=== PATIENT | male | born 1960 | race Caucasian/White ===

== ENCOUNTER 2016-09-07 13:19 | Observation (INO) | payer MEDICAID, MEDICARE ==
[2016-09-07] MEDS ORDERED: ASPIRIN (CHEWABLE) 81 MG TAB PO ONE (13:30)
[2016-09-07] MEDS ORDERED: MORPHINE 4 MG/ML INJECTION IV ONE (13:30)
[2016-09-07] MEDS ORDERED: SODIUM CHLORIDE 0.9% 10 ML FLUSH FLUSH PRN (13:30)
[2016-09-07] MEDS ORDERED: NITROGLYCERINE 2 % OINTMENT PACK TOP ONE (13:31)
[2016-09-07 13:55] LABS: AUTOMATED BASOPHIL 0.4 % (0-2); AUTOMATED EOSINOPHIL 3.5 % (0-5); AUTOMATED LYMPH 14.1 % (17-44); AUTOMATED MONOCYTE 4.6 % (3-10); AUTOMATED NEUTROPHIL 77.4 % (45-76); MPV 8.6 fL (7.4-10.4)
[2016-09-07] MEDS ORDERED: NITROGLYCERINE 0.4 MG TAB SL SCH (14:00)
[2016-09-07 14:06] LABS: BLOOD UREA NITROGEN 19 MG/DL (9-20); CALC CORRECTED 9.4 MG/DL (8.4-10.2); CALCULATED OSMOLALITY 276 MOs/Kg (270-290); CHLORIDE 101 mEq/L (98-107); GLUCOSE 277 MG/DL (70-99); SODIUM LEVEL 137 mEq/L (137-146); TOTAL PROTEIN 6.8 G/DL (6.3-8.2)
[2016-09-07 14:08] LABS: PARTIAL THROMB. TIME 26.8 SEC (22-35); PT-INR 1.2
--- NOTE | 2016-09-07 14:12 | DIRPT ---
CLINICAL DATA: Chest pain for 1 day with shortness of breath EXAM: PORTABLE CHEST 1 VIEW COMPARISON: Report of prior chest radiograph March 31, 2012 available ; images from that study cannot be retrieved. FINDINGS: There is hazy infiltrate in the right base. The lungs elsewhere clear. Heart size and pulmonary vascularity are normal. No adenopathy. No bone lesions. No pneumothorax. IMPRESSION: Focal infiltrate right base. Lungs elsewhere clear. Followup PA and lateral chest radiographs recommended in 3-4 weeks following trial of antibiotic therapy to ensure resolution and exclude underlying malignancy. Electronically Signed By: Kiko Lopez III, M.D. On: 09/07/2016 14:09
--- NOTE | 2016-09-07 14:18 | EDPRACDOC ---
- General Information Chief Complaint: Chest Pain Stated Complaint: HYPERGLYCEMIA Time Seen by Provider: 09/07/16 13:23 Information Source: Patient, Family Mode of Arrival: Ambulance Home Medications: Home Medications Atorvastatin Calcium [Lipitor] 10 mg PO HS 10/30/15 Insulin Detemir [Levemir] 75 unit SQ BID 10/30/15 Lisinopril/Hydrochlorothiazide [Lisinopril-Hctz 10-12.5 mg Tab] 1 tab PO QAM Fenofibrate [Tricor] 145 mg PO QAM 09/07/16 Gabapentin [Neurontin] 600 mg PO TID 09/07/16 Hydrocodone Bit/Acetaminophen [[place] 7.5-325 Tablet] 1 each PO QID PRN 09/07/16 MetFORMIN (Immediate Release) [GLUCOPHAGE Immed Release] 1,000 mg PO BID Paroxetine HCl [Paxil] 20 mg PO QAM 09/07/16 Trazodone HCl [Desyrel] 50 mg PO QHS 09/07/16 Levofloxacin [Levaquin] 750 mg PO DAILY #5 tab 09/08/16 Allergies/Adverse Reactions: Allergies Allergy/AdvReac Type Severity Reaction Status Date / Time No Known Allergies Allergy Verified 09/07/16 15:33 - History of Present Illness Onset: yesterday HPI: PT PRESENTS TODAY WITH SUBSTERNAL CP THAT BEGAN YESTERDAY. PT STATES PAIN WORSE WITH EXERTION, ASSOCIATED SHOB AND DIAPHORESIS. SOMEWHAT RELIEVED BY REST , BUT NEVER COMPLETELY. PT CURRENTLY SPEAKING IN 2-3 WORD SENTENCES AND DIAPHORETIC. NEGATIVE STRESS/ECHO SEVERAL YEARS AGO. WAS SCHEDULED TO HAVE REPEAT STRESS IN 3 WEEKS. Chest Pain Location: Reports: Substernal Pain Radiation: Reports: None Symptoms Occur: Reports: With light exertion Cardiac Risk Factors: Reports: Family History, Hyperlipidemia, Hypertension, Diabetes Cardiac History of: Reports: Stress Test (NEGATIVE SEVERAL YEARS AGO) PE Risk Factors: Reports: None Medications within 24 Hours: Reports: None Prehospital Care: Reports: Monitor Pain Came On: Reports: Gradually Pain Status: Present Now Pain Description: Reports: Sharp Pain Severity: Moderate Pain Worsens With: Reports: Exertion Pain Improves With: Reports: Rest Associated Signs and Symptoms: Reports: SOB ED Past Medical History - History Reviewed Yes Nurses notes reviewed and agree except as marked - Patient Medical History Cardiac History: Reports: Hypertension, Hypercholesterolemia Psychological History: Denies: Depression Systemic History: Reports: Diabetes Additional Past Medical History: CHRONIC BACK PAIN - Social Medical History Smoking Status: Never smoker EDM Review of Systems - Review of Systems ROS Negative Except as Marked: Yes All systems reviewed and were negative except as marked Constitutional: No Symptoms Reported Respiratory: Shortness of Breath Cardiovascular: Chest Pain Gastrointestinal: No Symptoms Reported Neurological: No Symptoms Reported Musculoskeletal: No Symptoms Reported Integumentary: No Symptoms Reported - Physical Exam Constitutional: Alert (Awake), Distress (DIAPHORETIC) Oriented to: Time, Person, Place Last recorded Vital Signs: Last Vital Signs Temp 97.9 F 09/07/16 13:33 Pulse 84 09/07/16 13:33 Resp 18 09/07/16 13:33 BP 142/70 09/07/16 13:33 Pulse Ox 90 L 09/07/16 13:33 Oxygen Pulse Oxygen Saturation 90 O2 Device Oxygen Flow Rate Fraction of Inspired Oxygen ( FIO2) - HEENT Head: Normal Eye Exam: Normal Neck: Normal, Denies Pain, Midline - Respiratory/Cardiovascular Respiratory: Normal - CTA Cardiovascular: Normal - GI Palpation: Normal Tenderness: Non tender - Musculoskeletal Back: Normal Extremities: Normal - Integumentary Skin: Warm, [place] Lymphatics: Normal - Neurologic Cerebellar: Normal Mood Description: Normal Thought: Coherent Perception: Normal ED Chest Pain Exam - Respiratory/Cardiovascular Respiratory: Normal - CTA Cardiovascular/Chest: Normal Radial Pulse: Normal Chest Palpation: Normal - Action ASA given in the ED: Yes - Results 09/07/16 13:41 09/08/16 04:35 WBC 9.5 xk/uL (3.8-10.8) 09/07/16 13:41 RBC 3.88 xM/uL (4.70-6.10) L 09/07/16 13:41 Hgb 11.5 g/dL (14.0-18.0) L 09/07/16 13:41 Hct 34.5 % (42-52) L 09/07/16 13:41 MCV 89 fL (80-94) 09/07/16 13:41 MCH 29.7 pg (27-32) 09/07/16 13:41 MCHC 33.4 g/dl (33-36) 09/07/16 13:41 RDW 14.3 % (11.5-14.5) 09/07/16 13:41 Plt Count 181 xk/uL (130-400) 09/07/16 13:41 MPV 8.6 fL (7.4-10.4) 09/07/16 13:41 Neut % (Auto) 77.4 % (45-76) H 09/07/16 13:41 Lymph % (Auto) 14.1 % (17-44) L 09/07/16 13:41 [place] % (Auto) 4.6 % (3-10) 09/07/16 13:41 Eos % (Auto) 3.5 % (0-5) 09/07/16 13:41 Baso % (Auto) 0.4 % (0-2) 09/07/16 13:41 Absolute Neuts (auto) 7.32 xk/uL (1.7-8.2) 09/07/16 13:41 Absolute Lymphs (auto) 1.33 xk/uL (0.65-4.75) 09/07/16 13:41 PT 11.9 SEC (9.2-11.2) H 09/07/16 13:41 INR 1.2 09/07/16 13:41 APTT 26.8 SEC (22-35) 09/07/16 13:41 Sodium 137 mEq/L (137-146) 09/07/16 13:41 Potassium 4.5 mEq/L (3.5-5.1) 09/07/16 13:41 Chloride 101 mEq/L (98-107) 09/07/16 13:41 Carbon Dioxide 26 mMOL/L (22-33) 09/07/16 13:41 Anion Gap 15 mEq/L (8-16) 09/07/16 13:41 BUN 19 MG/DL (9-20) 09/07/16 13:41 Creatinine 1.10 MG/DL (0.66-1.25) 09/07/16 13:41 Estimated GFR (MDRD) > 60 mL/min (>=60) 09/07/16 13:41 Glucose 277 MG/DL (70-99) H 09/07/16 13:41 POC Capillary Glucose 274 MG/DL (70-99) H 09/07/16 13:29 Calculated Osmolality 276 MOs/Kg (270-290) 09/07/16 13:41 Calcium 9.0 MG/DL (8.4-10.2) 09/07/16 13:41 Corrected Calcium 9.4 MG/DL (8.4-10.2) 09/07/16 13:41 Total Bilirubin 0.6 MG/DL (0.2-1.3) 09/07/16 13:41 AST 22 IU/L (17-59) 09/07/16 13:41 ALT 30 IU/L (21-72) 09/07/16 13:41 Alkaline Phosphatase 44 IU/L (38-126) 09/07/16 13:41 Total Protein 6.8 G/DL (6.3-8.2) 09/07/16 13:41 Albumin 3.6 G/DL (3.5-5.0) 09/07/16 13:41 Lab Results 09/07/16 09/07/16 09/07/16 13:41 13:41 13:41 WBC 9.5 RBC 3.88 L Hgb 11.5 L Hct 34.5 L MCV 89 MCH 29.7 MCHC 33.4 RDW 14.3 Plt Count 181 MPV 8.6 Neut % (Auto) 77.4 H Lymph % (Auto) 14.1 L [place] % (Auto) 4.6 Eos % (Auto) 3.5 Baso % (Auto) 0.4 Absolute Neuts (auto) 7.32 Absolute Lymphs (auto) 1.33 PT 11.9 H INR 1.2 APTT 26.8 Sodium 137 Potassium 4.5 Chloride 101 Carbon Dioxide 26 Anion Gap 15 BUN 19 Creatinine 1.10 Estimated GFR (MDRD) > 60 Glucose 277 H POC Capillary Glucose Calculated Osmolality 276 Calcium 9.0 Corrected Calcium 9.4 Total Bilirubin 0.6 AST 22 ALT 30 Alkaline Phosphatase 44 Total Protein 6.8 Albumin 3.6 09/07/16 13:29 WBC RBC Hgb Hct MCV MCH MCHC RDW Plt Count MPV Neut % (Auto) Lymph % (Auto) [place] % (Auto) Eos % (Auto) Baso % (Auto) Absolute Neuts (auto) Absolute Lymphs (auto) PT INR APTT Sodium Potassium Chloride Carbon Dioxide Anion Gap BUN Creatinine Estimated GFR (MDRD) Glucose POC Capillary Glucose 274 H Calculated Osmolality Calcium Corrected Calcium Total Bilirubin AST ALT Alkaline Phosphatase Total Protein Albumin Laboratory Results - last 24 hr 09/07/16 09/07/16 09/07/16 13:29 13:41 13:41 WBC 9.5 RBC 3.88 L Hgb 11.5 L Hct 34.5 L MCV 89 MCH 29.7 MCHC 33.4 RDW 14.3 Plt Count 181 MPV 8.6 Neut % (Auto) 77.4 H Lymph % (Auto) 14.1 L [place] % (Auto) 4.6 Eos % (Auto) 3.5 Baso % (Auto) 0.4 Absolute Neuts (auto) 7.32 Absolute Lymphs (auto) 1.33 PT INR APTT Sodium 137 Potassium 4.5 Chloride 101 Carbon Dioxide 26 Anion Gap 15 BUN 19 Creatinine 1.10 Estimated GFR (MDRD) > 60 Glucose 277 H POC Capillary Glucose 274 H Calculated Osmolality 276 Calcium 9.0 Corrected Calcium 9.4 Total Bilirubin 0.6 AST 22 ALT 30 Alkaline Phosphatase 44 Total Protein 6.8 Albumin 3.6 09/07/16 13:41 WBC RBC Hgb Hct MCV MCH MCHC RDW Plt Count MPV Neut % (Auto) Lymph % (Auto) [place] % (Auto) Eos % (Auto) Baso % (Auto) Absolute Neuts (auto) Absolute Lymphs (auto) PT 11.9 H INR 1.2 APTT 26.8 Sodium Potassium Chloride Carbon Dioxide Anion Gap BUN Creatinine Estimated GFR (MDRD) Glucose POC Capillary Glucose Calculated Osmolality Calcium Corrected Calcium Total Bilirubin AST ALT Alkaline Phosphatase Total Protein Albumin Laboratory Results 09/07/16 13:41 09/07/16 13:41 - EKG EKG #1 EKG Time: 13:31 -: Yes EKG interpreted by me Rate: bpm: 85 [place]: Normal Rhythm: NSR Block: None Hypertrophy: None ST: Normal Comments: UNUSUAL P AXIS; INVERTED P WAVES IN II AND III - Departure Disposition: Admit IP To This Hospital Condition: Stable Final Diagnosis: Acute coronary syndrome Pneumonia Qualifiers: Pneumonia type: due to unspecified organism Laterality: right Lung location: lower lobe of lung Qualified Code(s): J18.1 - Lobar pneumonia, unspecified organism Decision to Admit Time: 17:00 Decision to admit date: 09/14/16 Decision to admit: from ED
[2016-09-07] MEDS ORDERED: AZITHROMYCIN 250 MG TAB PO ONE (14:28)
[2016-09-07] MEDS ORDERED: CEFTRIAXONE 1 GM in D5W 100 ML IV ONE (14:28)
[2016-09-07 15:06] LABS: ALLEN'S TEST PASS; BEb 1.7 (+/- 2); TCO2 28.6 MMOL/L (23-27)
[2016-09-07 15:08] LABS: ABG Draw Site Right Radial
[2016-09-07] MEDS ORDERED: NITROGLYCERINE 0.4 MG TAB SL PRN (15:19)
--- NOTE | 2016-09-07 15:19 | HISTPHYS ---
- Chief Complaint Chest pain - History of Present Illness Patient is an obese 56-year-old white male who has noted the onset of midsternal chest heaviness over the past 24 hours lasting 5 date minutes at a time first occurring yesterday after feeding his fowl. He indicates that it is a pressure sensation with associated shortness breath but denies any diaphoresis. He mentions some tachycardic sensation that evening which lasted a few minutes. He had recurrent chest discomfort today lasting same wound time but more intense. He indicates that he had a stress test 3 years ago [place] which was reportedly negative. He has a history of diabetes mellitus hypertension hyper cholesterolemia. Past surgical history significant for cartilage repair both knees, two toes removed from each foot and bilateral lens implants. - Medical History Cardiac History: Reports: Hypertension, Hypercholesterolemia Systemic History: Reports: Diabetes Neurological History: Reports: No Significant History Psychological History: Reports: No Significant History. Denies: Depression - Surgical History Reports: Other (Bilateral knee cartilage surgery bilateral lens implant 4 toes removed) - Medictions/Allergies Allergies No Known Allergies Allergy (Verified 01/25/16 23:39) Current Medication List: Reviewed Home Medications Atorvastatin Calcium [Lipitor] 10 mg PO DAILY 10/30/15 Gabapentin 300 mg PO HS 10/30/15 Insulin Detemir [Levemir] 60 unit SQ BID 10/30/15 Lisinopril/Hydrochlorothiazide [Lisinopril-Hctz 10-12.5 mg Tab] 1 tab PO DAILY 10/30/15 Meloxicam [Mobic] 15 mg PO DAILY 10/30/15 Metformin HCl [Metformin HCl ER] 1,000 mg PO BID 10/30/15 Levofloxacin [Levaquin] 750 mg PO DAILY #14 tablet 01/26/16 Hydrocodone Bit/Acetaminophen [Hydrocodon-Acetaminophen 5-325] 1 - 2 tab PO Q6H PRN #10 tab 05/17/16 - Family History Reports: Hypertension, Diabetes - Social History Travel Outside of [place] in the Last 3 Months?: No Lives: with Spouse Smoking Status: Never smoker - Review of Systems Constitutional: No Symptoms Reported (No Fever, chills, wt loss/gain, diaphoresis,fatigue/malaise.) Eyes: No Symptoms Reported (No blurry vision, visual changes, eye pain, or eye redness.) Ears: No Symptoms Reported (No ear pain or discharge) Nose: No Symptoms Reported (No nasal discharge/congestion or bleeding) Mouth: No Symptoms Reported (No oropharyngeal lesions or erythema) Throat/Neck: No Symptoms Reported (No throat pain or swelling.No oropharyngeal lesions or erythema.) Respiratory: Shortness of Breath Cardiovascular: Chest Pain, Edema, Palpitations Gastrointestinal: No Symptoms Reported (No abdominal pain, nausea, vomiting, diarrhea, constipation, or bloody stool.) Genitourinary: No Symptoms Reported (No dysuria or hematuria.) Neurological: No Symptoms Reported (No headache, dizziness, seizures, or focal weakness.) Musculoskeletal:: Chronic low back pain, Osteoarthritis (Slipped disc) Integumentary: No Symptoms Reported (no rashes or lesions) Allergic/Immunologic: No Symptoms Reported (no rashes or lesions) Hematologic: No Symptoms Reported (No chronic anemia, bleeding, or easy bruising.), Other (Lymphatics- no lymph node swelling or pain.) Endocrine: Diabetes Psychiatric: No Symptoms Reported (Fully oriented, with normal and appropriate affect.) - Physical Exam Vital Signs: Initial Vitals Temperature 97.9 F 09/07/16 13:33 Pulse Rate 84 09/07/16 13:33 Respiratory Rate 18 09/07/16 13:33 Blood Pressure 142/70 09/07/16 13:33 Pulse Oxygen Saturation 90 L 09/07/16 13:33 Constitutional: Alert (Awake, Fully oriented. Normal and appropriate affect.Well appearing. Well nourished.), No apparent distress Oriented to: Time, Person, Place - HEENT Head: Normal (normocephalic, atraumatic.), Other (No cervical lymphadenopathy. No supraclavicular lymphadenopathy. Neck: No palpable mass, supple , trachea midline.) Eye: Normal (pupils equal, reactive to light, and round; EOMI, Sclera white) Oropharynx: Normal (Pharynx: Moist without exudate,Gums-no swelling, No oropharyngeal lesions or erythema, Mucous membranes are dry.) ENT EAC: Normal (No oropharyngeal lesions or erythema. Mucous membranes are dry. ) TMJ: Normal Nose: No Symptoms Reported (septum midline, Nares patent, without discharge or bleeding.) Respiratory: Normal - CTA (Clear to auscultation bilaterally. No wheezing, rales , rhonchi. Chest wall movements are symmetric. No use of accessory muscles to breathe.) Cardiovascular: Normal (RRR , Normal S1, S2. No murmurs, rubs, or gallops. PMI non-displaced. Carotids: no carotid bruits. No bradycardia or tachycardia. DP pulses 2+ bilaterally.) - GI Auscultation: Normal (normal active sounds) Palpation: Normal (Soft,non distended,nontender. No hepatosplenomegaly.), Other (Obesity BMI 37.7) Tenderness: Non tender (No rebound or guarding) Shanks's Sign: Negative - Musculoskeletal Back: Normal (Non-Tender) Extremities: Normal (Normal tone, DP pulses 2+ bilaterally, No cyanosis or edema bilaterally, FROM bilaterally.) Spine: non-tender, normal alignment, normal inspection - Integumentary Skin: Normal (Clean, dry, and intact. No rashes. No lesions.) Lymphatics: Normal (No cervical lymphadenopathy. No supraclavicular lymphadenopathy.) - Neurologic Memory Impaired: Normal Motor Function: Normal (Motor 5/5 throughout.Normal tone, Pulses 2+ No cyanosis or edema, FROM) Cranial Nerve: Normal (CN II-XII intact sensation, strength 5/5) Cerebellar: Normal (Babinski: toes downgoing bilaterally. Intact Finger to nose. Sensory grossly intact to light touch. Intact rapid alternating movements bilaterally. No pronator drift.) Mood Description: Normal (Fully oriented. Normal and appropriate affect.) Thought: Coherent Perception: Normal (Normal and appropriate affect.) - Focused CV Perfusion Exam Vital Signs: Last Vital Signs Temp 97.9 F 09/07/16 13:33 Pulse 82 09/07/16 15:17 Resp 18 09/07/16 15:17 BP 111/66 09/07/16 15:17 Pulse Ox 96 09/07/16 15:17 - Lab Results 09/07/16 13:41 09/07/16 13:41 Laboratory Results - last 24 hr 09/07/16 09/07/16 09/07/16 13:29 13:41 13:41 WBC 9.5 RBC 3.88 L Hgb 11.5 L Hct 34.5 L MCV 89 MCH 29.7 MCHC 33.4 RDW 14.3 Plt Count 181 MPV 8.6 Neut % (Auto) 77.4 H Lymph % (Auto) 14.1 L [place] % (Auto) 4.6 Eos % (Auto) 3.5 Baso % (Auto) 0.4 Absolute Neuts (auto) 7.32 Absolute Lymphs (auto) 1.33 PT INR APTT D-Dimer Quant (PE/DVT) Puncture Site pH pCO2 pO2 HCO3 Total CO2 Base Excess FiO2 % Specimen Drawn By Sodium 137 Potassium 4.5 Chloride 101 Carbon Dioxide 26 Anion Gap 15 BUN 19 Creatinine 1.10 Estimated GFR (MDRD) > 60 Glucose 277 H POC Capillary Glucose 274 H Calculated Osmolality 276 Lactic Acid Calcium 9.0 Corrected Calcium 9.4 Total Bilirubin 0.6 AST 22 ALT 30 Alkaline Phosphatase 44 Troponin I < 0.01 [id number]-Kjuyaunyvdz Pept 1140 H Total Protein 6.8 Albumin 3.6 09/07/16 09/07/16 09/07/16 13:41 14:00 15:00 WBC RBC Hgb Hct MCV MCH MCHC RDW Plt Count MPV Neut % (Auto) Lymph % (Auto) [place] % (Auto) Eos % (Auto) Baso % (Auto) Absolute Neuts (auto) Absolute Lymphs (auto) PT 11.9 H INR 1.2 APTT 26.8 D-Dimer Quant (PE/DVT) 949 H Puncture Site Right radial pH 7.390 pCO2 45.0 pO2 52.0 L HCO3 27.2 H Total CO2 28.6 H Base Excess 1.7 FiO2 % 0.21 Specimen Drawn By Belja Sodium Potassium Chloride Carbon Dioxide Anion Gap BUN Creatinine Estimated GFR (MDRD) Glucose POC Capillary Glucose Calculated Osmolality Lactic Acid Calcium Corrected Calcium Total Bilirubin AST ALT Alkaline Phosphatase Troponin I Eds-J-Vkghoatpwot Pept Total Protein Albumin 09/07/16 09/07/16 15:12 16:25 WBC RBC Hgb Hct MCV MCH MCHC RDW Plt Count MPV Neut % (Auto) Lymph % (Auto) [place] % (Auto) Eos % (Auto) Baso % (Auto) Absolute Neuts (auto) Absolute Lymphs (auto) PT INR APTT D-Dimer Quant (PE/DVT) Puncture Site pH pCO2 pO2 HCO3 Total CO2 Base Excess FiO2 % Specimen Drawn By Sodium Potassium Chloride Carbon Dioxide Anion Gap BUN Creatinine Estimated GFR (MDRD) Glucose POC Capillary Glucose Calculated Osmolality Lactic Acid 1.7 Calcium Corrected Calcium Total Bilirubin AST ALT Alkaline Phosphatase Troponin I < 0.01 Vjd-Y-Bcxyerhcipx Pept Total Protein Albumin - Diagnostic Findings EKG shows sinus rhythm rate 85 short p.r. of 125 millisecond questionable delta wave, septal q's and small q's inferiorly. No ST T wave changes. - Assessment (1) Chest pain R07.9 - CHEST PAIN, UNSPECIFIED Acute Present on Admission: Yes Qualifiers: Chest pain type: precordial chest pain Qualified Code(s): R07.2 - Precordial pain Lexiscan stress test in a.m.. Monitor overnight. 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 (3) Hyperlipidemia E78.5 - HYPERLIPIDEMIA, UNSPECIFIED Chronic Present on Admission: Yes Qualifiers: Hyperlipidemia type: other hyperlipidemia Qualified Code(s): E78.4 - Other hyperlipidemia Continue Lipitor as ordered. (4) Chronic back pain M54.9 - DORSALGIA, UNSPECIFIED; G89.29 - OTHER CHRONIC PAIN Chronic Present on Admission: Yes Qualifiers: Back pain location: low back pain Back pain laterality: unspecified Sciatica presence: without sciatica Qualified Code(s): M54.5 - Low back pain; G89.29 - Other chronic pain Analgesics ordered. (5) Right pulmonary infiltrate on CXR R91.8 - OTHER NONSPECIFIC ABNORMAL FINDING OF LUNG FIELD Acute Present on Admission: Yes Could be atelectasis versus infection will check PA and lateral chest x-ray in a.m.. (6) Obesity (BMI 35.0-39.9 without comorbidity) E66.9 - OBESITY, UNSPECIFIED Chronic Present on Admission: Yes Weight reduction necessary Case Care Discussed with: Patient, Nursing Staff Total Time: 58 minutes Critical Care: No Code: [id number]
[2016-09-07] MEDS ORDERED: Pharmacy Order Set Alert SCH (16:00)
[2016-09-07] MEDS ORDERED: ENOXAPARIN 80 MG/0.8 ML PFS SQ SCH (18:00)
[2016-09-07] MEDS ORDERED: DEXTROSE 25 GM/50 ML PFS IV PRN (18:27)
[2016-09-07] MEDS ORDERED: GLUCOSE (ORAL GEL) 15 GM TUBE PO PRN (18:27)
[2016-09-07] MEDS ORDERED: GLUCAGON 1 MG VIAL SQ PRN (18:27)
[2016-09-07] MEDS ORDERED: TUSSIONEX 5 ML ORAL SYRINGE PO PRN (18:28)
[2016-09-07] MEDS ORDERED: ACETAMINOPHEN 325 MG/TAB TABLET PO PRN (18:28)
[2016-09-07] MEDS ORDERED: BENZONATATE 100 MG PERLES PO PRN (18:28)
[2016-09-07] MEDS ORDERED: BISACODYL 10 MG SUPP PR PRN (18:28)
[2016-09-07] MEDS ORDERED: ONDANSETRON HCL 4 MG/2 ML VIAL IV PRN (18:28)
[2016-09-07] MEDS ORDERED: PROMETHAZINE 25 MG/ML VIAL IV PRN (18:28)
[2016-09-07] MEDS ORDERED: SENNA CONCENTRATE TAB PO PRN (18:28)
[2016-09-07] MEDS ORDERED: ACETAMINOPHEN 325 MG SUPP PR PRN (18:28)
[2016-09-07] MEDS: MORPHINE 2 MG/ML INJECTION IV PRN ×2 (19:52→22:57)
[2016-09-07] MEDS ORDERED: Levofloxacin 750 mg/150 ml D5W 750 MG/150 ML RTU IV SCH (20:00)
[2016-09-07 20:04] LABS: ALL NEG? NO
[2016-09-07 20:16] LABS: MDMA* NEG (NEGATIVE); METHAMPHETAMINES NEG (NEGATIVE); OXYCODONE NEG (NEGATIVE)
[2016-09-07] MEDS ORDERED: Vaccine Screening Complete SCH (22:00)
[2016-09-07] MEDS: NAPROXEN 500 MG EC TAB PO SCH (22:57)
[2016-09-08] MEDS: NITROGLYCERINE 2 % OINTMENT PACK TOP SCH ×2 (00:54→11:26)
[2016-09-08 02:38] VITALS: BMI 39.6
[2016-09-08] MEDS: MORPHINE 2 MG/ML INJECTION IV PRN (04:30)
[2016-09-08] MEDS: PANTOPRAZOLE 40 MG TAB PO SCH ×2 (04:32→11:29)
[2016-09-08 05:35] LABS: LDL (calc.) 48.2 MG/DL (<100); VLDL (calc.) 28.8 MG/DL (5-40)
[2016-09-08] MEDS ORDERED: REGULAR INSULIN 100 UNITS/ML - 3 ML VIAL SQ SCH (07:00)
[2016-09-08] MEDS ORDERED: HYDROCODONE BIT PO PRN (09:17)
[2016-09-08] MEDS ORDERED: [UNRECOGNIZED DRUG - OTHER] PO PRN (09:17)
[2016-09-08] MEDS ORDERED: ACETAMINOPHEN PO PRN (09:17)
--- NOTE | 2016-09-08 09:37 | CAPUEKG ---
[place], [place] Test Date: 2016-09-07 Pat Name: NEGRO BURGESS Department: Room: 439 Gender: Male Shipping Assistant: LEILA FISHERB: Requested By: Order Number: Reading MD: Samuel Negrete Measurements Intervals [place] Rate: 79 P: -18 OR: 158 QRS: 40 QRSD: 96 T: 59 QT: 398 QTc: 456 Interpretive Statements Unusual P axis, probably Normal sinus rhythm No acute changes. Electronically Signed On 09-08-16 09:36:26 EST by Samuel Negrete <[email or web address] [id number]
[2016-09-08] MEDS ORDERED: HYDROCODONE 5 MG/ACETAMIN 325 MG TAB PO PRN (09:44)
[2016-09-08] MEDS ORDERED: INSULIN DETEMIR 100 UNITS/ML PEN SQ SCH ×2 (10:00→21:00)
[2016-09-08] MEDS ORDERED: Pharmacy Review for Metformin - IV Contrast Given SCH (10:00)
--- NOTE | 2016-09-08 10:20 | DIRPT ---
CLINICAL DATA: Elevated D-dimer. Chest pain 2 days. EXAM: CT ANGIOGRAPHY CHEST WITH CONTRAST TECHNIQUE: Multidetector CT imaging of the chest was performed using the standard protocol during bolus administration of intravenous contrast. Multiplanar CT image reconstructions and MIPs were obtained to evaluate the vascular anatomy. CONTRAST: 80 mL Isovue 370 IV COMPARISON: Chest x-ray 09/07/2016 FINDINGS: Negative for pulmonary embolism. Pulmonary arteries normal in caliber. Negative for aortic aneurysm or dissection. Mild coronary calcification. Heart size within normal limits. No pericardial effusion. Diffuse bilateral airspace disease involving upper and lower lobes is relatively symmetric but slightly greater on the right than the left. No significant pleural effusion. Negative for lung mass. Mild adenopathy. Mild mediastinal and bilateral hilar adenopathy. Upper abdomen reveals no acute abnormality. Hepatomegaly noted. No thoracic fracture. No acute skeletal lesion. Review of the MIP images confirms the above findings. IMPRESSION: Negative for pulmonary embolism. Diffuse bilateral airspace disease, likely related to pulmonary edema however pneumonia not excluded. Mild bilateral hilar and mediastinal adenopathy. Differential includes reactive adenopathy, infection, sarcoid. Neoplasm considered less likely. No focal lung mass. Electronically Signed By: John Nelson M.D. On: 09/08/2016 10:17
--- NOTE | 2016-09-08 10:26 | CAPUEKG ---
[place], [place] Test Date: 2016-09-07 Pat Name: NEGRO BURGESS Department: Room: 439 Gender: Male Exchange Clerk: : Requested By: Order Number: Reading MD: Samuel Negrete Measurements Intervals [place] Rate: 77 P: [place]: 144 QRS: 25 QRSD: 96 T: 58 QT: 414 QTc: 468 Interpretive Statements Normal sinus rhythm Normal ECG Electronically Signed On 09-08-16 10:25:03 EST by Samuel Negrete <[email or web address] [id number]
[2016-09-08] MEDS: NAPROXEN 500 MG EC TAB PO SCH (11:26)
[2016-09-08 11:41] VITALS: BP 141/92; TEMP 97.6
[2016-09-08] MEDS ORDERED: Levofloxacin 750 mg/150 ml D5W 750 MG/150 ML RTU IV SCH (12:00)
[2016-09-08] MEDS ORDERED: PERFLUTREN LIPID MICROSPHERE 1.5 ML VIAL IV ONE (13:00)
[2016-09-08] MEDS ORDERED: Non-Formulary Medication ITEM (Gabapentin [Neurontin] 600 MG) PO SCH (14:00)
[2016-09-08] MEDS ORDERED: GABAPENTIN 300 MG CAP PO SCH (14:00)
--- NOTE | 2016-09-08 14:35 | PCM.DCS92 ---
- Final/Secondary Discharge Diagnosis (1) Chest pain Acute R07.9 - CHEST PAIN, UNSPECIFIED Present on Admission: Yes precordial chest pain Comment: Started on IV antibiotics. Monitor overnight. (2) Insulin dependent diabetes mellitus Chronic E11.9 - TYPE 2 DIABETES MELLITUS WITHOUT COMPLICATIONS; Z79.4 - [employer] (CURRENT) USE OF INSULIN Present on Admission: Yes Comment: Hemoglobin A1c urine microalbumin diabetic diet. (3) Hyperlipidemia Chronic E78.5 - HYPERLIPIDEMIA, UNSPECIFIED Present on Admission: Yes other hyperlipidemia E78.4 - Other hyperlipidemia Comment: Continue Lipitor as ordered. (4) Chronic back pain Chronic M54.9 - DORSALGIA, UNSPECIFIED; G89.29 - OTHER CHRONIC PAIN Present on Admission: Yes low back pain unspecified without sciatica M54.5 - Low back pain; G89.29 - Other chronic pain Comment: Analgesics ordered. (5) Right pulmonary infiltrate on CXR Acute R91.8 - OTHER NONSPECIFIC ABNORMAL FINDING OF LUNG FIELD Present on Admission: Yes Comment: Could be atelectasis versus infection will check PA and lateral chest x -ray in a.m.. (6) Obesity (BMI 35.0-39.9 without comorbidity) Chronic E66.9 - OBESITY, UNSPECIFIED Present on Admission: Yes Comment: Weight reduction necessary (7) CHF (congestive heart failure) Acute I50.9 - HEART FAILURE, UNSPECIFIED Present on Admission: Yes systolic acute I50.21 - Acute systolic (congestive) heart failure Discharge Disposition: Home Discharge Condition: Stable Cognitive Discharge Status: Unimpaired Fuctional Discharge Status: Independent Physician Follow up/Referrals: Chalo Lopez MD [Ambulatory] - 09/14/16 3:00 pm New Prescriptions: Levofloxacin [Levaquin] 750 mg PO DAILY #5 tab O2 Device: Room Air Diet at Discharge: As Tolerated, Diabetic, Low Fat, 1800 Calorie Discontinue use of:: Alcohol, All Types of Tobacco - DC Summary Notes HPI/Notes: Patient is an obese 56-year-old white male who has noted the onset of midsternal chest heaviness over the past 24 hours lasting 5 date minutes at a time first occurring yesterday after feeding his fowl. He indicates that it is a pressure sensation with associated shortness breath but denies any diaphoresis. He mentions some tachycardic sensation that evening which lasted a few minutes. He had recurrent chest discomfort today lasting same wound time but more intense. He indicates that he had a stress test 3 years ago Philip which was reportedly negative. He has a history of diabetes mellitus hypertension hyper cholesterolemia. Past surgical history significant for cartilage repair both knees, two toes removed from each foot and bilateral lens implants. Chest x-ray showed a right lower lobe infiltrate and patient was placed on antibiotics. Hospital Course Note:: Discharge summary on patient named NEGRO BURGESS admitted to [facility] on 09/07/16 by Michael Pena MD. Date of discharge is 09/08/2016. He was admitted PCU and started on IV antibiotics for his respiratory infection. Echocardiogram showed his ejection fraction to be 55% with diastolic dysfunction. I discussed his care with Dr. Negrete who indicated due to his size that he would need a 2 day stress test if deemed necessary however with his symptomatology was felt more related to infection and should he need a stress test that could be performed on outpatient basis. His troponins were negative and monitoring showed no evidence of arrhythmia. Follow up with his primary care provider in the next 2 weeks will be necessary. Weight loss would be beneficial. At some point time in the future he may need to be placed on diuretics. CC: Roxanna JAIN Total Time: 37 min Code: 75727 (>30min.) - Physical Exam Vital Signs: Last Vital Signs Temp 97.6 F 09/08/16 11:38 Pulse 74 09/08/16 12:00 Resp 18 09/08/16 11:38 BP 141/92 09/08/16 11:38 Pulse Ox 94 09/08/16 11:38 Oxygen Pulse Oxygen Saturation 94 O2 Device Room Air Oxygen Flow Rate 1 Fraction of Inspired Oxygen ( 2 FIO2) Constitutional: Alert (Awake, Fully oriented. Normal and appropriate affect.Well appearing. Well nourished.), No apparent distress Oriented to: Time, Person, Place - HEENT Head: Normal (normocephalic, atraumatic.), Other (No cervical lymphadenopathy. No supraclavicular lymphadenopathy. Neck: No palpable mass, supple , trachea midline.) Eye: Normal (pupils equal, reactive to light, and round; EOMI, Sclera white) Oropharynx: Normal (Pharynx: Moist without exudate,Gums-no swelling, No oropharyngeal lesions or erythema, Mucous membranes are dry.) ENT EAC: Normal (No oropharyngeal lesions or erythema. Mucous membranes are dry. ) TMJ: Normal Nose: No Symptoms Reported (septum midline, Nares patent, without discharge or bleeding.) - Respiratory/Cardiovascular Respiratory: Normal - CTA (Clear to auscultation bilaterally. No wheezing, rales , rhonchi. Chest wall movements are symmetric. No use of accessory muscles to breathe.) Cardiovascular: Normal (RRR , Normal S1, S2. No murmurs, rubs, or gallops. PMI non-displaced. Carotids: no carotid bruits. No bradycardia or tachycardia. DP pulses 2+ bilaterally.) - GI Auscultation: Normal (normal active sounds) Palpation: Normal (Soft,non distended,nontender. No hepatosplenomegaly.), Other (Obesity BMI 37.7) Tenderness: Non tender (No rebound or guarding) Shanks's Sign: Negative - Musculoskeletal Back: Normal (Non-Tender) Extremities: Normal (Normal tone, DP pulses 2+ bilaterally, No cyanosis or edema bilaterally, FROM bilaterally.) - Integumentary Skin: Normal (Clean, dry, and intact. No rashes. No lesions.) Lymphatics: Normal (No cervical lymphadenopathy. No supraclavicular lymphadenopathy.) - Neurologic Memory Impaired: Normal Motor Function: Normal (Motor 5/5 throughout.Normal tone, Pulses 2+ No cyanosis or edema, FROM) Cranial Nerve: Normal (CN II-XII intact sensation, strength 5/5) Cerebellar: Normal (Babinski: toes downgoing bilaterally. Intact Finger to nose. Sensory grossly intact to light touch. Intact rapid alternating movements bilaterally. No pronator drift.) Mood Description: Normal (Fully oriented. Normal and appropriate affect.) Thought: Coherent Perception: Normal (Normal and appropriate affect.)
--- NOTE | 2016-09-08 14:56 | CAPUECHO ---
INDICATION: CAD/SOB HEIGHT: 188.0 cm (6 ft 2.0 in) WEIGHT: 140.2 kg (309.0 lbs) BP: 141/92 BSA: 2.210150 m MEASUREMENTS 2D RVIDd: 3.3 cm LVIDs: 3.5 cm EF(Teich): 55.36 % IVSd: 1.2 cm LVIDd: 5.0 cm LVPWd: 1.2 cm LA Diam: 4.5 cm EF Biplane: 52.88 % LAESV MOD A4C: 103.3 ml LAESV MOD A2C: 88.9 ml LAESV Index (A-L): 42.44 ml/m M-MODE Ao Diam: 3.3 cm LA Diam: 3.3 cm DOPPLER MV E Enrique: 0.97 m/s MV A Enrique: 1.37 m/s MV PHT: 95.99 ms MVA By PHT: 2.29 cm LVOT Vmax: 1.00 m/s AV Vmax: 1.49 m/s TR Vmax: 3.02 m/s TR maxP mmHg RVSP: 46.40 mmHg FINDINGS ------- Procedure:2D images, m-mode, color and spectral Doppler were obtained and reviewed. ECG rhythm:Sinus rhythm. Study quality:This was a technically difficult study with suboptimal views. Definity was used for LV opacification. Left Ventricle:There is mild concentric left ventricular hypertrophy. Overall left ventricular sys tolic function is low-normal with, an EF between 50 - 55 %. No segmental abnormality. The diast olic filling pattern indicates impaired relaxation. Right Ventricle:The right ventricle is normal in size and function. Left Atrium:The left atrium is mildly dilated. Right Atrium:The right atrium is normal in size and function. Aortic Valve:The aortic valve is trileaflet, and appears structurally normal. No aortic stenosis or regurgitation. Mitral Valve:Normal appearing mitral valve. There is trace mitral regurgitation. Tricuspid Valve:The tricuspid valve appears structurally normal. Mild tricuspid regurgitation pres ent. The right ventricular systolic pressure, as measured by Doppler, is 46 mmhg. Pulmonic Valve:The pulmonic valve is normal. There is no pulmonic regurgitation present. Aorta:The aortic root, ascending aorta and aortic arch appear normal. IVC:Normal inferior vena cava dimension. Pericardium:There is no pericardial effusion. CONCLUSIONS 1. technically difficult, sub-optimal study; Definity contrast was very helpful 2. mild concentr ic left ventricular hypertrophy with low normal systolic function, EF 54%, no segmental abnormali ty. Impaired relaxation (diastolic dysfunction) 3. mild left atrial dilatation 4. normal right heart size/function with mild TR, mild elevation of pulm artery pressure suggested 5. no signifi cant valvular heart disease Electronically Signed By: Samuel Negrete MD-- Electronically Signed On: 14:56:05
[2016-09-08 15:10] VITALS: PULSE 76
[2016-09-08] MEDS ORDERED: TRAZODONE 50 MG TAB PO SCH (21:00)
[2016-09-08] MEDS ORDERED: ATORVASTATIN 10 MG TAB PO SCH (21:00)
[2016-09-09] MEDS ORDERED: FENOFIBRATE 145 MG TAB PO SCH (09:00)
[2016-09-09] MEDS ORDERED: HYDROCHLOROTHIAZIDE 12.5 MG CAP PO SCH (09:00)
[2016-09-09] MEDS ORDERED: LISINOPRIL 10 MG TAB PO SCH (09:00)
[2016-09-09] MEDS ORDERED: PAROXETINE 20 MG TAB PO SCH (09:00)
[2016-09-09] MEDS ORDERED: Non-Formulary Medication ITEM (Lisinopril/Hydrochlorothiazide [Lisinopril-Hctz 10-12.5 M PO SCH (09:00)
[2016-09-10] MEDS ORDERED: MetFORMIN 1000 MG IMMED REL TAB PO SCH (07:00)
== END 2016-09-08 15:10 | disposition home or self-care (01) ==
LOC: ED 13:19 → PCU 15:25
PROVIDERS: ADMIT Internal Medicine; ATTEND Internal Medicine
DX: R07.2 Precordial pain (principal); E11.9 Type 2 diabetes mellitus without complications; Z79.4 Long term (current) use of insulin; E78.5 Hyperlipidemia, unspecified; G89.29 Other chronic pain; M54.9 Dorsalgia, unspecified; R91.8 Other nonspecific abnormal finding of lung field; I11.0 Hypertensive heart disease with heart failure; I50.21 Acute systolic (congestive) heart failure; E78.00 Pure hypercholesterolemia, unspecified; Z79.84 Long term (current) use of oral hypoglycemic drugs; E66.9 Obesity, unspecified; Z68.39 Body mass index [BMI] 39.0-39.9, adult; Z79.899 Other long term (current) drug therapy
CPT/HCPCS: 36415; 36600; 71010; 71275; 80053; 80061; 80307; 82043; 82803; 82947; 82962; 83605; 83880; 84484; 85025; 85379; 85610; 85730; 87040; 93005; 96365; 96372; 96375; 99285; A9270; A9698; C8923; G0378; J0696; J1650; J1956; J2270; J7060; Q9957; 78452; J3490